=== PATIENT | male | born 2000 | race Caucasian/White ===

== ENCOUNTER 2023-02-07 15:00 | Outpatient (RCR) | payer OTHER, SELFPAY | END 2023-02-08 09:24 | disposition home or self-care (01) | PROVIDERS: PCP Preventive Medicine Occupational Medicine; Visit Provider Family Medicine | DX: M79.645 Pain in left finger(s) (principal); Z51.89 Encounter for other specified aftercare | CPT/HCPCS: 97033; 97035; 97140; 97165 ==